=== PATIENT | male | born 1980 | race Caucasian/White ===

== ENCOUNTER → 2019-12-13 | Outpatient (CLI) | payer MEDICAID ==
[2019-12-13 08:54] LABS: HCT 44.6 % (39.0-53.0); MCH 29.7 pg (25.0-35.0); MCHC 33.6 g/dL (31.0-37.0); MCV 88.5 fL (80.0-100.0); Mean Platelet Volume 6.8; Platelet Count 204 k/uL (150-450); RBC 5.04 m/uL (4.30-5.90); RDW 13.2 % (11.5-15.5); WBC 4.8 k/uL (3.8-10.6)
[2019-12-13 16:44] LABS: African American GFR (CKD) 129.5 (60.0-200.0); Albumin 4.8 g/dL (3.80-4.90); Albumin/Globulin Ratio 2.18 (1.60-3.17); Anion Gap 8.3 mmol/L (4.00-12.00); BUN/Creat Ratio 21.25 Ratio (12.00-20.00); Calcium 9.5 mg/dL (8.7-10.3); Carbon Dioxide 28.7 mmol/L (21.6-31.8); Chol/HDL Ratio 3.65; Globulin 2.2 g/dL (1.6-3.3); Non-African American GFR(CKD) 111.7 (60.0-200.0); Potassium 4.2 mmol/L (3.5-5.5); Total Bilirubin 3.1 mg/dL (0.3-1.2)
== END | disposition home or self-care (01) ==
LOC: LABWHC1 08:24
PROVIDERS: ATTEND Family Medicine
DX: Z00.00 Encounter for general adult medical examination without abnormal findings (principal); R53.83 Other fatigue
CPT/HCPCS: 36415; 80053; 80061; 82306; 82607; 84443; 85027

== ENCOUNTER → 2021-01-07 | Outpatient (CLI) | payer BC ==
--- NOTE | 2021-01-08 06:50 | CT ---
EXAMINATION TYPE: CT abdomen pelvis wo con DATE OF EXAM: 01/07/2021 HISTORY: RLQ pain, possible hernia. CT DLP: 506 mGycm. Automated Exposure Control for Dose Reduction was Utilized. TECHNIQUE: CT scan of the abdomen and pelvis is performed with oral but without IV contrast. COMPARISON: NONE FINDINGS: Within the limitations of a non-contrast study, the following observations are made. LUNG BASES: No significant abnormality is appreciated. LIVER/GB: Contracted gallbladder. PANCREAS: No significant abnormality is seen. SPLEEN: No significant abnormality is seen. ADRENALS: No significant abnormality is seen. KIDNEYS: There is a thin-walled 3.2 cm simple appearing thin-walled cyst laterally midpole of the rig ht kidney. There is occasional subcentimeter low dense lesion throughout left kidney too small to fur ther characterize presumed benign. No renal stones or hydronephrosis identified bilaterally. Bladder not greatly distended with mild concentric wall thickening. BOWEL: Oral contrast does not reach level of the midileum making evaluation of distal bowel loops sub optimal. Evaluation also suboptimal as patient has very little intra-abdominal fat. No abnormal small or large bowel dilatation is seen. [id number] diffuse fecal prominence and colon is seen. Ther e is small bowel feces sign in distal ileal loops. Findings consistent with delayed passage of ingest ed material to colonic level. Poor visualization of appendix in the right lower quadrant or pelvis wi thout focal inflammatory change at this level GENITAL ORGANS: Prostate size is upper limits of normal. LYMPH NODES: No greater than 1cm abdominal or pelvic lymph nodes are appreciated. OSSEOUS STRUCTURES: Bilateral pars defect L4 level with grade 1 anterolisthesis L4 on L5. Posterior d isc herniation L4-L5 level sagittal image 35 effaces anterior thecal sac. Mild to moderate disc space narrowing at this level. OTHER: No significant additional abnormality is seen. IMPRESSION: 1. Mild concentric wall thickening in poorly distended bladder, correlate clinically to exclude acute cystitis. 2. Small bowel feces sign consistent with delayed passage of ingested material to colonic level. No b owel obstruction. Mild to moderate diffuse colonic fecal stasis noted. 3. L4-L5 spondylosis and arthropathy as detailed above.
== END | disposition home or self-care (01) ==
LOC: RADPROMAIN 15:02
PROVIDERS: ATTEND Family Medicine
DX: K59.89 Other specified functional intestinal disorders (principal); N32.89 Other specified disorders of bladder
CPT/HCPCS: 74176